=== PATIENT | male | born 1955 | race Caucasian/White ===

== ENCOUNTER → 2024-07-01 07:34 | Outpatient (REF) | payer MEDICARE, OTHER, SELFPAY | LOC: HWRAD 07:34 | PROVIDERS: ATTENDING PHYSICIAN Nurse Practitioner Adult Health | DX: K42.9 Umbilical hernia without obstruction or gangrene (principal); R10.30 Lower abdominal pain, unspecified | CPT/HCPCS: 76705 ==

== ENCOUNTER → 2024-07-19 08:30 | Outpatient (REF) | payer MEDICARE, OTHER, SELFPAY ==
[2024-07-19 11:08] LABS: Mean Corpuscular Hgb 22.4 pg (27.0-31.0); Mean Corpuscular Volume 74.6 fL (80.0-94.0); Mean Platelet Volume 9.1 fL (7.4-10.4); Platelet Count 330 10^3/uL (130-400); Red Blood Cell Count 5.36 10^6/uL (4.70-6.10); Red Cell Dist. Width 19.8 % (11.5-14.5); White Blood Cell Count 5.9 10^3/uL (4.8-10.8)
[2024-07-19 11:23] LABS: Blood Urea Nitrogen 20 mg/dl (9-20); Calcium 8.9 mg/dl (8.4-10.2); Carbon Dioxide 30 mmol/L (22-30); Chloride 99 mmol/L (98-107); Glucose 93 mg/dl (70-99); Potassium 4.9 mmol/L (3.5-5.1); Sodium 136 mmol/L (135-145); eGFR > 60.00
== END ==
LOC: SDSPAT 08:30
PROVIDERS: ATTENDING PHYSICIAN Surgery; FAMILY PHYSICIAN Family Medicine
DX: Z01.818 Encounter for other preprocedural examination (principal)
CPT/HCPCS: 80048; 85027; 93005

== ENCOUNTER 2024-08-02 06:37 | Day surgery (SDC) | payer MEDICARE, OTHER, SELFPAY ==
[2024-07-19 13:07] VITALS: BMI 33.3
[2024-08-02] VITALS (10 sets, daily range): BP systolic 99–131; BP diastolic 70–87; BMI 33.3
[2024-08-02] MEDS: TYLENOL 1000 MG PO (10:49)
[2024-08-02] MEDS: NORMOSOL-R/PLASMALYTE-A 1000 IV (11:07)
[2024-08-02 11:10] LABS: Glucose - Point of Care 111 mg/dl (70-99)
--- NOTE | 2024-08-02 11:29 | W.SUR.PREOP ---
Pre-Operative Surgical Note
-
I have examined this patient prior to the performance of the scheduled procedure.
The patient's condition is unchanged from the time of the current History and
Physical and the patient is able to undergo the scheduled procedure.
--- NOTE | 2024-08-02 14:56 | W.IMMPOSTOP ---
Addendum entered and electronically signed by Aryan Montalvo MD 08/02/24 15:23:
#[id number]
Original Note:
Surgical Immed Post Op Note
-
Primary Surgeon: Aryan Montalvo MD
Assisting Surgeon: Alison Anderson PA-C
Pre-op Diagnosis: Umbilical hernia, left inguinal hernia
Post-op Diagnosis: Umbilical hernia; 2 cm
Left direct inguinal hernia
Recurrent right indirect and direct inguinal hernia
Procedure Performed: Open umbilical herniorrhaphy with mesh; Ventralex ST 6.4 cm round
Robotic assisted laparoscopic repair bilateral inguinal hernias with mesh; 3D max large mid weight x 2
Anesthesia Type: GETA +0.25% Marcaine
Specimen / Cultures: None
Estimated Blood Loss: 8 mL
Complications: None immediate
Operative Findings:
--Reducible umbilical hernia, 2 cm fascial defect. Open preperitoneal underlay mesh repair, Ventralex ST 6.4 cm round mesh; closure of fascial defect with 0 PDS suture.
--Preoperatively diagnosed left inguinal hernia confirmed -direct inguinal hernia. Indirect space normal, no lipoma of cord structures. 3D max large mid weight mesh repair.
--Incidental recurrent right inguinal hernia -indirect as well as direct components containing preperitoneal fat and peritoneum. Moderate lipoma of cord structures also reduced and excised to facilitate mesh placement. Prior permanent suture
material visualized at the level of internal ring and overlying direct space. 3D max large mid weight mesh repair.
--Upon inspection at initiation of robotic surgery the bladder was significantly distended with urine limiting pelvic visualization -Van catheter placed for procedure uneventfully and removed at conclusion of surgery.
--No significant abdominal adhesions encountered.
The assistance of Alison Mcmahan PA-C was required due to the complexity of the procedure. During the procedure Alison Mcmahan PA-C assisted with port placement, robotic instrumentation and suture material exchanges, and closure of the surgical incision
sites. I was present for the entirety of the operative procedure.
[2024-08-02 15:30] LABS: Glucose - Point of Care 126 mg/dl (70-99)
== END 2024-08-02 17:01 | disposition home or self-care (01) ==
LOC: SDS 06:37
PROVIDERS: ATTENDING PHYSICIAN Surgery
DX: K40.91 Unilateral inguinal hernia, without obstruction or gangrene, recurrent (principal); K42.9 Umbilical hernia without obstruction or gangrene
CPT/HCPCS: 49651; 49593; 82962; C1781

== ENCOUNTER → 2024-12-12 13:52 | Outpatient (REF) | payer MEDICARE, OTHER, SELFPAY | LOC: HWRAD 13:52 | PROVIDERS: ATTENDING PHYSICIAN Family Medicine | DX: N28.1 Cyst of kidney, acquired (principal); Z80.51 Family history of malignant neoplasm of kidney; N20.0 Calculus of kidney | CPT/HCPCS: 76770 ==

== ENCOUNTER 2025-05-12 06:26 | Day surgery (SDC) | payer MEDICARE, OTHER, SELFPAY ==
[2025-05-12 08:52] LABS: Glucose - Point of Care 101 mg/dl (70-99)
== END 2025-05-12 11:31 | disposition home or self-care (01) ==
LOC: GI 06:26
PROVIDERS: ATTENDING PHYSICIAN Internal Medicine Gastroenterology; FAMILY PHYSICIAN Family Medicine
DX: Z12.11 Encounter for screening for malignant neoplasm of colon (principal); K64.8 Other hemorrhoids; K57.30 Diverticulosis of large intestine without perforation or abscess without bleeding; K31.89 Other diseases of stomach and duodenum; D64.9 Anemia, unspecified; D12.3 Benign neoplasm of transverse colon; D12.0 Benign neoplasm of cecum; K62.89 Other specified diseases of anus and rectum; Z86.0100 Personal history of colon polyps, unspecified
CPT/HCPCS: 45385; 43239; 82962; 88305; 88342